=== PATIENT | female | born 1985 | race Caucasian/White ===

== ENCOUNTER 2016-07-02 06:27 | Observation (INO) | payer BC ==
[~2016-07-02] VITALS: Ht 167.6 cm; Wt 110.7 kg
[~2016-07-02 06:27] MED LIST: BACITRACIN--O.0.9 GM TP; TRAMADOL HCL50 MG PO
[2016-07-04] MEDS ORDERED: LEVOTHYROXINE125 MCG PO (12:55)
[2016-07-04] MEDS ORDERED: TYLENOL #3 DPS1 TAB PO (12:56)
[2016-07-04] MEDS ORDERED: TYLENOL DPS325 MG PO (12:56)
--- NOTE | 2016-07-05 07:25 | OR ---
ADMIT: 07/02/2016 RM/LOC: [address] [facility] MR#: [id number] [facility]#: [id number] [address] [facility] [address] [place] [phone] T[address] [place] [id number] Operative/Delivery Room Report SEX: F AGE: 31 : 1985 SURGERY DATE: 07/02/2016 SURGEON: Gray Barragan MD PREOPERATIVE DIAGNOSES: 1. Right thyromegaly with painful thyroiditis. 2. 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 3. Keloid scar from previous thyroidectomy. POSTOPERATIVE DIAGNOSES: 1. Right thyromegaly with painful thyroiditis. 2. 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 3. Keloid scar from previous thyroidectomy. OPERATION: 1. Right thyroid lobectomy. 2. Scar revision, anterior neck. ANESTHESIA: General oral endotracheal. BLOOD LOSS: 20 mL. COMPLICATIONS: None. DRAINS: Tylor-Paz 7 mm. DESCRIPTION OF PROCEDURE: With the patient in supine position, under general oral endotracheal anesthesia, her eyes were taped, anterior neck was extended slightly and the anterior neck was prepped with ChloraPrep, allowed 3 minutes to dry. The patient was then draped sterilely. An incision was made following the previous surgical excision and excising the keloid from previous scar. The incision carried through the dermis to the subcutaneous tissue and the scar tissue removed with sharp dissection. Dissection was then continued with electrocautery through platysmal layer. The strap muscles were then identified and in the midline. This exposed the thyroid isthmus and trachea and the right thyroid lobe was then exposed by blunt dissection. The strap muscles were retracted laterally. The gland was grasped with tenaculum, and dissection of the right lobe with removal from the thyroid bed was performed with blunt dissection. Afferent and efferent vessels treated with clamping and coagulation. During the dissection, the parathyroid glands (both superior and inferior) were identified and preserved. The recurrent laryngeal nerve was identified and preserved its identity confirmed by NIM-2 stimulation and function confirmed intact following lobectomy by NIM-2 stimulation. The gland was pedicled at Molina ligament, which was transected and the right lobe and this was removed from the field. During the procedure, there was very ADMIT: 07/02/2016 RM/LOC: 6[address] [facility] MR#: [id number] [address] [facility] [address] [place], [place] [id number] MARTINA DUNNEDarline MOREL [address] [place] [address] Operative/Delivery Room Report SEX: F AGE: 31 : 1985 little bleeding with total blood loss 20 mL. The wound was irrigated with saline. A Tylor-Paz drain was placed, brought out the left side of strap muscles and incision and wound was closed in layers with 3-0 chromic catgut to the midline strap muscles to the platysmal layer in an interrupted simple 5-0 Prolene stitches to the skin. The drain was sutured to the skin with silk and the operation was completed. The closure of the wound was carried out meticulously and the dermal layer was closed with interrupted inverted chromic catgut sutures prior to closure of the epidermis with 5-0 Prolene. She emerged from general anesthesia while in the operating room, was extubated in the operating room, and transferred to the recovery room in good condition. Gray Barragan MD/ hannah JOB #: [id number] CC: rGay Barragan, Attending Physician Jimmy Massey MD, Family Physician Jimmy Massey MD
--- NOTE | 2016-07-08 08:45 | HP ---
ADMIT: 07/02/2016 RM/LOC: [facility] MR#: [id number] [address] [facility] [address] [place] [id number] ALEA DUNNE [address] [place] [phone] Pre-OP History and Physical SEX: F AGE: 31 : 1985 DATE OF SERVICE: HISTORY OF PRESENT ILLNESS: Alea is 31 years old. She is admitted for right thyroid lobectomy. In September 2014, she underwent left thyroid lobectomy in treatment of an enlarged thyroid gland with a 2 cm nodule. At that time, her symptoms included fullness in the area of the thyroid and intermittent dysphagia. The left thyroid lobe showed changes consistent with lymphocytic thyroiditis and benign thyroid nodule. The right thyroid lobe was normal at that time. Following that left lobectomy, her throat symptoms resolved. She, however, has again developed dysphagia as well as feeling of fullness and tenderness. These symptoms have occurred and the right thyroid lobe was enlarged despite thyroid hormone replacement using levothyroxine 100 mcg daily. Recent thyroid function tests are normal with TSH 1.43, T3 of 2.8, and a T4 of 0.81. In light of her symptoms and progressive thyroid enlargement, surgical removal of the left lobe has been recommended. We have again discussed the risks including risks of recurrent laryngeal nerve and parathyroid glands. 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 She has developed a keloid-appearing scar from her previous surgery and the present thyroid incision will include resection of the previous scar and primary closure. MEDICATIONS: Prior to admission, levothyroxine 100 mcg daily. ALLERGIES: PENICILLIN ON THE LEFT CAUSING HIVES AND RESPIRATORY DISTRESS. PAST MEDICAL HISTORY: Left thyroid lobectomy, 10/04/2014. REVIEW OF SYSTEMS: No known lower respiratory, cardiovascular, GI, , hematologic, or neurologic disorders. SOCIAL HISTORY: She is not exposed to secondhand smoke. She herself does not use alcohol, caffeine, or tobacco. FAMILY HISTORY: No known anesthetic complications or coagulopathies. There is family history of thyroid disease. Paternal uncle has thyroid cancer, and maternal grandmother, maternal aunt, and paternal grandmother all have hypothyroidism. PHYSICAL EXAMINATION: GENERAL: A 31-year-old, well developed, well nourished, alert, no acute distress. HEENT: Pupils are equal. Conjunctivae clear. No proptosis, lid retraction, or exophthalmos. Ear canals, TMs, middle ears clear. Nose, airway patent. No mucus or purulence. Mouth and pharynx clear. Larynx; good symmetry, structure, and function. No lesions. NECK: Palpable left thyroid lobe, firm, mildly tender, prominent. There is also hyperplastic previous thyroid incision consistent with keloid, but there ADMIT: 07/02/2016 RM/LOC: [facility] MR#: [id number] [address] [place] [phone] BLACK DIAMONDALEA [address] [place] [phone] Pre-OP History and Physical SEX: F AGE: 31 : 1985 is no adenopathy or neck masses palpable. LUNGS: Clear. HEART: Rhythm regular. EXTREMITIES: Normal. IMPRESSION: 1. Left thyromegaly. 2. Hypothyroid. 3. Post right thyroid lobectomy, September 2014, consistent with lymphocytic thyroiditis (present thyroid symptoms consistent with painful thyroiditis). PLAN: 1. We will have thyroid lobectomy. 2. Scar revision. Gray Barragan MD/ hannah JOB #: [id number] CC: Gray Barragan, Attending Physician Jimmy Massey MD, Family Physician
== END 2016-07-03 11:15 | disposition home or self-care (01) ==
LOC: WOR 06:27 → 6PED 11:31
PROVIDERS: ADMIT Otolaryngology
PROC: 0GTH0ZZ Resection of Right Thyroid Gland Lobe, Open Approach (ICD-10-PCS; principal; 2016-07-02)
PROC: 0JN Subcutaneous Tissue and Fascia, Release (ICD-10-PCS; principal; 2016-07-02)
DX: L91.0 Hypertrophic scar (principal); L90.5 Scar conditions and fibrosis of skin; E06.9 Thyroiditis, unspecified; E06.3 Autoimmune thyroiditis; E03.9 Hypothyroidism, unspecified; E66.9 Obesity, unspecified; K21.9 Gastro-esophageal reflux disease without esophagitis; Z88.0 Allergy status to penicillin; Z88.6 Allergy status to analgesic agent; Z79.899 Other long term (current) drug therapy